=== PATIENT | male | born 1950 | race Caucasian/White ===

== ENCOUNTER 2019-02-17 16:24 | Inpatient (IN) ==
[2019-02-17] MEDS ORDERED: ASPIRIN 325 MG TABLET PO STA (16:51)
[2019-02-17] MEDS ORDERED: ONDANSETRON 4 MG/2 ML VIAL IV STA (16:51)
[2019-02-17 17:10] LABS: Basophils % 0.2 % (0.0-0.8); Eosinophils # 0.3 10*3/uL (0.0-0.87); Hemoglobin 12.5 GM/DL (14.0-18.0); Immature Granulocytes % 0.5 %; Immature Granulocytes Absolute 0.07 #; Lymphocytes # 2.3 10*3/uL (1.4-4.0); Lymphocytes % 18.2 % (21.2-54.2); Mean Corpuscular HGB Conc 32.1 GM/DL (32-36); Mean Platelet Volume 11.2 FL (9.6-12.0); Monocytes % 5.8 % (1.7-12.7); Neutrophils % 73.3 % (38.7-73.9); Platelet Count 220 T/CUMM (130-400); Red Blood Count 4.38 MC/CUMM (3.8-5.5); Red Cell Distribution Width 14.4 % (9.3-17.3); White Blood Count 12.9 T/CUMM (4-12)
[2019-02-17 17:20] LABS: INR 0.9; PT Patient Result 10.3 SECS; Partial Thromboplastin Time 33.7 SECS (0-40)
[2019-02-17 17:36] LABS: Alanine Aminotransferase 20 U/L (16-61); Albumin 3.1 G/DL (3.4-5.0); Alkaline Phosphatase 132 U/L (45-117); Aspartate Amino Transferase 13 U/L (0-37); Bilirubin,Total < 0.39 MG/DL (0.2-1.0); Blood Urea Nitrogen 15 MG/DL (7-18); Calcium 8.8 MG/DL (8.5-10.1); Glucose 151 MG/DL (74-106); Osmolality,Calculated 286.1 MOS/KG (273-304); Total Protein 7.3 G/DL (6.4-8.3)
[2019-02-17] MEDS ORDERED: ACETAMINOPHEN 325 MG TABLET PO PRN (18:40)
[2019-02-17] MEDS ORDERED: GLUCAGON 1 MG VIAL IM PRN (18:47)
[2019-02-17] MEDS ORDERED: DEXTROSE 50% 25 GM/50 ML VIAL IV PRN (18:47)
[2019-02-17] MEDS ORDERED: ONDANSETRON 4 MG/2 ML VIAL IV PRN (21:30)
[2019-02-17] MEDS ORDERED: LABETALOL 100 MG/20 ML VIAL IV PRN (22:38)
[2019-02-17] MEDS: CITALOPRAM 20 MG TABLET PO SCH (22:50)
[2019-02-17] MEDS: INSULIN LISPRO 100 UNIT/ML SUBCUT SCH (22:53)
[2019-02-17] MEDS: APIXABAN 5 MG TABLET PO SCH (22:53)
[2019-02-17] MEDS ORDERED: ASPIRIN CHEW 81 MG TABLET PO ONE (23:13)
[2019-02-18 04:53] LABS: Basophils % 0.3 % (0.0-0.8); Eosinophils # 0.1 10*3/uL (0.0-0.87); Eosinophils % 1.2 % (0.00-10.9); Hematocrit 36.6 VOL% (42.0-52.0); Hemoglobin 11.6 GM/DL (14.0-18.0); Immature Granulocytes % 0.3 %; Immature Granulocytes Absolute 0.04 #; Lymphocytes # 2.6 10*3/uL (1.4-4.0); Lymphocytes % 22.2 % (21.2-54.2); Mean Corpuscular HGB Conc 31.7 GM/DL (32-36); Mean Corpuscular Volume 89.7 FL (87-102); Mean Platelet Volume 11.5 FL (9.6-12.0); Monocytes % 6.7 % (1.7-12.7); Neutrophils % 69.3 % (38.7-73.9); Platelet Count 203 T/CUMM (130-400); Red Blood Count 4.08 MC/CUMM (3.8-5.5); Red Cell Distribution Width 14.2 % (9.3-17.3); White Blood Count 11.7 T/CUMM (4-12)
[2019-02-18 05:28] LABS: Calcium 9.2 MG/DL (8.5-10.1); Osmolality,Calculated 287.8 MOS/KG (273-304); Risk Ratio 4.17; Thyroid Stimulating Hormone 0.586 uIU/ml (0.358-3.74); VLDL CHOLESTEROL 17.4 MG/DL
[2019-02-18] MEDS: LISINOPRIL 20 MG TABLET PO SCH (08:47)
[2019-02-18] MEDS: ERGOCALCIFEROL 50,000 UNIT CAPSULE PO SCH (08:47)
[2019-02-18] MEDS: ATORVASTATIN 40 MG TABLET PO SCH (08:48)
[2019-02-18] MEDS: METOPROLOL TARTRATE 50 MG TABLET PO SCH ×2 (08:48→21:16)
[2019-02-18] MEDS: amLODIPine 10 MG TABLET PO SCH (08:48)
[2019-02-18] MEDS: ALLOPURINOL 300 MG TABLET PO SCH (08:52)
[2019-02-18] MEDS: APIXABAN 5 MG TABLET PO SCH ×2 (08:52→21:15)
[2019-02-18] MEDS: sitaGLIPtin 100 MG TABLET PO SCH (08:52)
[2019-02-18] MEDS: INSULIN LISPRO 100 UNIT/ML SUBCUT SCH ×4 (08:57→22:53)
[2019-02-18] MEDS ORDERED: CYANOCOBALAMIN 1000 MCG/1 ML VIAL SUBCUT SCH (09:00)
[2019-02-18] MEDS ORDERED: ASPIRIN EC 81 MG TABLET PO SCH (09:00)
[2019-02-18 11:59] LABS: Apearance,Urine CLEAR (Clear); Bilirubin,Urine Negative (Negative); Blood, Urine Negative (Negative); Glucose,Urine (UA) Negative (Negative); Hyaline Casts,Urine 3 /LPF (0-3); Ketones,Urine Negative (Negative); Mucus,Urine Moderate /LPF (Occasional); Nitrite,Urine Negative (Negative); Protein,Urine 30 MG/DL; RBC,Urine 5 /HPF (0-4); Squamous Epithelial Cell,Urine Occasional /HPF (0-10); Urine Color Yellow (Yellow); Urine Specific Gravity 1.026 (1.001-1.035)
[2019-02-18 12:03] LABS: Barbiturates Screen,Urine Negative (Negative); Benzodiazepines Screen,Urine Negative (Negative); Cannabinoid Screen,Urine Negative (Negative); Opiate Screen,Urine Negative (Negative); Phencyclidine Screen,Urine Negative (Negative)
[2019-02-18] MEDS: CITALOPRAM 20 MG TABLET PO SCH (21:15)
[2019-02-19 05:18] LABS: Basophils % 0.3 % (0.0-0.8); Eosinophils # 0.2 10*3/uL (0.0-0.87); Eosinophils % 1.9 % (0.00-10.9); Hematocrit 37.4 VOL% (42.0-52.0); Hemoglobin 11.9 GM/DL (14.0-18.0); Immature Granulocytes % 0.4 %; Immature Granulocytes Absolute 0.05 #; Lymphocytes # 2.5 10*3/uL (1.4-4.0); Lymphocytes % 20.9 % (21.2-54.2); Mean Corpuscular HGB Conc 31.8 GM/DL (32-36); Mean Corpuscular Volume 88.8 FL (87-102); Mean Platelet Volume 11.3 FL (9.6-12.0); Monocytes % 6.2 % (1.7-12.7); Neutrophils % 70.3 % (38.7-73.9); Platelet Count 206 T/CUMM (130-400); Red Blood Count 4.21 MC/CUMM (3.8-5.5); Red Cell Distribution Width 14.4 % (9.3-17.3); White Blood Count 11.8 T/CUMM (4-12)
[2019-02-19 05:44] LABS: Calcium 8.9 MG/DL (8.5-10.1); Osmolality,Calculated 284.3 MOS/KG (273-304)
[2019-02-19] MEDS: INSULIN LISPRO 100 UNIT/ML SUBCUT SCH ×4 (08:10→20:55)
[2019-02-19] MEDS: APIXABAN 5 MG TABLET PO SCH ×2 (08:59→20:59)
[2019-02-19] MEDS: amLODIPine 10 MG TABLET PO SCH (08:59)
[2019-02-19] MEDS: LISINOPRIL 20 MG TABLET PO SCH (08:59)
[2019-02-19] MEDS: METOPROLOL TARTRATE 50 MG TABLET PO SCH ×2 (08:59→20:56)
[2019-02-19] MEDS: ALLOPURINOL 300 MG TABLET PO SCH (08:59)
[2019-02-19] MEDS: sitaGLIPtin 100 MG TABLET PO SCH (08:59)
[2019-02-19] MEDS: CLOPIDOGREL 75 MG TABLET PO SCH (08:59)
[2019-02-19] MEDS: ATORVASTATIN 40 MG TABLET PO SCH (09:00)
[2019-02-19] MEDS: CITALOPRAM 20 MG TABLET PO SCH (21:00)
[2019-02-20 04:50] LABS: Basophils % 0.2 % (0.0-0.8); Eosinophils # 0.3 10*3/uL (0.0-0.87); Eosinophils % 2.1 % (0.00-10.9); Hematocrit 37.6 VOL% (42.0-52.0); Hemoglobin 11.9 GM/DL (14.0-18.0); Immature Granulocytes % 0.3 %; Immature Granulocytes Absolute 0.04 #; Lymphocytes # 2.4 10*3/uL (1.4-4.0); Lymphocytes % 20.2 % (21.2-54.2); Mean Corpuscular HGB Conc 31.6 GM/DL (32-36); Mean Corpuscular Volume 88.5 FL (87-102); Mean Platelet Volume 11.6 FL (9.6-12.0); Monocytes % 6.9 % (1.7-12.7); Neutrophils % 70.3 % (38.7-73.9); Platelet Count 208 T/CUMM (130-400); Red Blood Count 4.25 MC/CUMM (3.8-5.5); Red Cell Distribution Width 14.5 % (9.3-17.3)
[2019-02-20 05:18] LABS: Calcium 8.8 MG/DL (8.5-10.1); Osmolality,Calculated 281.4 MOS/KG (273-304)
[2019-02-20] MEDS: INSULIN LISPRO 100 UNIT/ML SUBCUT SCH ×4 (07:13→21:16)
[2019-02-20] MEDS: sitaGLIPtin 100 MG TABLET PO SCH (08:58)
[2019-02-20] MEDS: LISINOPRIL 20 MG TABLET PO SCH (08:58)
[2019-02-20] MEDS: APIXABAN 5 MG TABLET PO SCH ×2 (08:59→21:13)
[2019-02-20] MEDS: ATORVASTATIN 40 MG TABLET PO SCH (08:59)
[2019-02-20] MEDS: CLOPIDOGREL 75 MG TABLET PO SCH (08:59)
[2019-02-20] MEDS: METOPROLOL TARTRATE 50 MG TABLET PO SCH ×2 (08:59→21:13)
[2019-02-20] MEDS: ALLOPURINOL 300 MG TABLET PO SCH (08:59)
[2019-02-20] MEDS: amLODIPine 10 MG TABLET PO SCH (08:59)
[2019-02-20] MEDS: CITALOPRAM 20 MG TABLET PO SCH (21:12)
[2019-02-21 06:26] LABS: Basophils % 0.3 % (0.0-0.8); Eosinophils # 0.3 10*3/uL (0.0-0.87); Eosinophils % 2.2 % (0.00-10.9); Hematocrit 40.6 VOL% (42.0-52.0); Hemoglobin 12.9 GM/DL (14.0-18.0); Immature Granulocytes % 0.7 %; Lymphocytes # 2.4 10*3/uL (1.4-4.0); Lymphocytes % 16.9 % (21.2-54.2); Mean Corpuscular HGB Conc 31.8 GM/DL (32-36); Mean Corpuscular Volume 88.3 FL (87-102); Mean Platelet Volume 11.2 FL (9.6-12.0); Monocytes % 7.6 % (1.7-12.7); Neutrophils % 72.3 % (38.7-73.9); Platelet Count 221 T/CUMM (130-400); Red Cell Distribution Width 14.3 % (9.3-17.3); White Blood Count 14.1 T/CUMM (4-12)
[2019-02-21 06:51] LABS: Calcium 9.4 MG/DL (8.5-10.1); Osmolality,Calculated 278.7 MOS/KG (273-304)
[2019-02-21] MEDS: INSULIN LISPRO 100 UNIT/ML SUBCUT SCH ×4 (09:38→21:44)
[2019-02-21] MEDS: sitaGLIPtin 100 MG TABLET PO SCH (10:03)
[2019-02-21] MEDS: amLODIPine 10 MG TABLET PO SCH (10:03)
[2019-02-21] MEDS: ALLOPURINOL 300 MG TABLET PO SCH (10:03)
[2019-02-21] MEDS: ATORVASTATIN 40 MG TABLET PO SCH (10:03)
[2019-02-21] MEDS: LISINOPRIL 20 MG TABLET PO SCH (10:03)
[2019-02-21] MEDS: APIXABAN 5 MG TABLET PO SCH ×2 (10:03→21:43)
[2019-02-21] MEDS: METOPROLOL TARTRATE 50 MG TABLET PO SCH ×2 (10:04→21:44)
[2019-02-21] MEDS: CLOPIDOGREL 75 MG TABLET PO SCH (10:07)
[2019-02-21] MEDS ORDERED: ZINC OXIDE PASTE 113 GM TUBE TOP PRN (15:44)
[2019-02-21] MEDS: CITALOPRAM 20 MG TABLET PO SCH (21:43)
[2019-02-22 04:59] LABS: Basophils # 0.1 10*3/uL (0.0-0.2); Basophils % 0.3 % (0.0-0.8); Eosinophils # 0.2 10*3/uL (0.0-0.87); Eosinophils % 1.1 % (0.00-10.9); Hematocrit 40.9 VOL% (42.0-52.0); Hemoglobin 13.1 GM/DL (14.0-18.0); Immature Granulocytes % 0.8 %; Immature Granulocytes Absolute 0.14 #; Lymphocytes # 2.5 10*3/uL (1.4-4.0); Lymphocytes % 14.3 % (21.2-54.2); Mean Corpuscular Volume 87.4 FL (87-102); Mean Platelet Volume 11.3 FL (9.6-12.0); Monocytes % 7.2 % (1.7-12.7); Neutrophils % 76.3 % (38.7-73.9); Platelet Count 235 T/CUMM (130-400); Red Blood Count 4.68 MC/CUMM (3.8-5.5); Red Cell Distribution Width 14.4 % (9.3-17.3); White Blood Count 17.4 T/CUMM (4-12)
[2019-02-22 05:20] LABS: Calcium 9.3 MG/DL (8.5-10.1)
[2019-02-22] MEDS: INSULIN LISPRO 100 UNIT/ML SUBCUT SCH ×4 (09:31→21:26)
[2019-02-22] MEDS: amLODIPine 10 MG TABLET PO SCH (09:31)
[2019-02-22] MEDS: ALLOPURINOL 300 MG TABLET PO SCH (09:31)
[2019-02-22] MEDS: sitaGLIPtin 100 MG TABLET PO SCH (09:31)
[2019-02-22] MEDS: LISINOPRIL 20 MG TABLET PO SCH (09:32)
[2019-02-22] MEDS: METOPROLOL TARTRATE 50 MG TABLET PO SCH ×2 (09:32→20:47)
[2019-02-22] MEDS: APIXABAN 5 MG TABLET PO SCH ×2 (09:32→20:47)
[2019-02-22] MEDS: ATORVASTATIN 40 MG TABLET PO SCH (09:32)
[2019-02-22] MEDS: CLOPIDOGREL 75 MG TABLET PO SCH (09:32)
[2019-02-22] MEDS ORDERED: ZALEPLON 5 MG CAPSULE PO PRN (12:10)
[2019-02-22 15:16] LABS: Troponin I < 0.015 NG/ML (0.00-0.045)
[2019-02-22] MEDS: CITALOPRAM 20 MG TABLET PO SCH (20:46)
[2019-02-23] MEDS: ALLOPURINOL 300 MG TABLET PO SCH (08:25)
[2019-02-23] MEDS: CLOPIDOGREL 75 MG TABLET PO SCH (08:25)
[2019-02-23] MEDS: amLODIPine 10 MG TABLET PO SCH (08:25)
[2019-02-23] MEDS: ATORVASTATIN 40 MG TABLET PO SCH (08:25)
[2019-02-23] MEDS: LISINOPRIL 20 MG TABLET PO SCH (08:25)
[2019-02-23] MEDS: sitaGLIPtin 100 MG TABLET PO SCH (08:25)
[2019-02-23] MEDS: APIXABAN 5 MG TABLET PO SCH ×2 (08:25→20:24)
[2019-02-23] MEDS: METOPROLOL TARTRATE 50 MG TABLET PO SCH ×2 (08:25→20:24)
[2019-02-23] MEDS: INSULIN LISPRO 100 UNIT/ML SUBCUT SCH ×4 (10:31→20:24)
[2019-02-23] MEDS ORDERED: BISACODYL 10 MG SUPP RECTAL ONE (10:51)
[2019-02-23] MEDS ORDERED: FUROSEMIDE 20 MG/2 ML VIAL IV ONE (16:08)
[2019-02-23] MEDS ORDERED: MAGNESIUM CITRATE 300 ML BOTTLE PO ONE (18:02)
[2019-02-23] MEDS: CITALOPRAM 20 MG TABLET PO SCH (20:24)
[2019-02-24 04:58] LABS: Basophils % 0.3 % (0.0-0.8); Eosinophils # 0.4 10*3/uL (0.0-0.87); Eosinophils % 2.5 % (0.00-10.9); Hematocrit 38.5 VOL% (42.0-52.0); Hemoglobin 12.4 GM/DL (14.0-18.0); Immature Granulocytes % 0.6 %; Immature Granulocytes Absolute 0.09 #; Lymphocytes # 2.4 10*3/uL (1.4-4.0); Lymphocytes % 16.7 % (21.2-54.2); Mean Corpuscular HGB Conc 32.2 GM/DL (32-36); Mean Corpuscular Volume 87.9 FL (87-102); Mean Platelet Volume 11.7 FL (9.6-12.0); Monocytes % 7.6 % (1.7-12.7); Neutrophils % 72.3 % (38.7-73.9); Platelet Count 242 T/CUMM (130-400); Red Blood Count 4.38 MC/CUMM (3.8-5.5); Red Cell Distribution Width 14.3 % (9.3-17.3); White Blood Count 14.3 T/CUMM (4-12)
[2019-02-24 05:19] LABS: Calcium 9.3 MG/DL (8.5-10.1); Osmolality,Calculated 275.1 MOS/KG (273-304)
[2019-02-24 05:26] LABS: Calcium 9.5 MG/DL (8.5-10.1)
[2019-02-24 06:46] LABS: Apearance,Urine Slightly Hazy (Clear); Bacteria,Urine Occasional /HPF (Few); Bilirubin,Urine Negative (Negative); Blood, Urine Negative (Negative); Glucose,Urine (UA) Negative (Negative); Hyaline Casts,Urine 2 /LPF (0-3); Ketones,Urine Negative (Negative); Mucus,Urine Few /LPF (Occasional); Nitrite,Urine Negative (Negative); Protein,Urine Negative; RBC,Urine 11 /HPF (0-4); Squamous Epithelial Cell,Urine Occasional /HPF (0-10); Urine Color Yellow (Yellow); Urine Specific Gravity 1.023 (1.001-1.035); Urine Urobilinogen < 2.0 EU/DL (0.2-1.0); WBC,Urine 18 /HPF (0-6)
[2019-02-24] MEDS: FUROSEMIDE 20 MG/2 ML VIAL IV SCH (09:38)
[2019-02-24] MEDS: INSULIN LISPRO 100 UNIT/ML SUBCUT SCH ×4 (09:38→21:19)
[2019-02-24] MEDS: LISINOPRIL 20 MG TABLET PO SCH (09:39)
[2019-02-24] MEDS: amLODIPine 10 MG TABLET PO SCH (09:39)
[2019-02-24] MEDS: ATORVASTATIN 40 MG TABLET PO SCH (09:39)
[2019-02-24] MEDS: LEVOFLOXACIN 750 MG TABLET PO SCH (09:39)
[2019-02-24] MEDS: sitaGLIPtin 100 MG TABLET PO SCH (09:39)
[2019-02-24] MEDS: ALLOPURINOL 300 MG TABLET PO SCH (09:40)
[2019-02-24] MEDS: METOPROLOL TARTRATE 50 MG TABLET PO SCH ×2 (09:40→21:19)
[2019-02-24] MEDS: CITALOPRAM 20 MG TABLET PO SCH (21:18)
[2019-02-24] MEDS: APIXABAN 5 MG TABLET PO SCH (21:19)
[2019-02-25 05:23] LABS: Basophils % 0.3 % (0.0-0.8); Eosinophils # 0.3 10*3/uL (0.0-0.87); Eosinophils % 2.5 % (0.00-10.9); Hematocrit 38.6 VOL% (42.0-52.0); Hemoglobin 11.9 GM/DL (14.0-18.0); Immature Granulocytes % 0.9 %; Immature Granulocytes Absolute 0.11 #; Lymphocytes # 2.3 10*3/uL (1.4-4.0); Lymphocytes % 18.2 % (21.2-54.2); Mean Corpuscular HGB Conc 30.8 GM/DL (32-36); Mean Corpuscular Volume 89.1 FL (87-102); Mean Platelet Volume 11.3 FL (9.6-12.0); Neutrophils % 71.1 % (38.7-73.9); Platelet Count 257 T/CUMM (130-400); Red Blood Count 4.33 MC/CUMM (3.8-5.5); Red Cell Distribution Width 14.3 % (9.3-17.3); White Blood Count 12.8 T/CUMM (4-12)
[2019-02-25 05:42] LABS: Calcium 9.6 MG/DL (8.5-10.1); Osmolality,Calculated 279.8 MOS/KG (273-304)
[2019-02-25] MEDS: LEVOFLOXACIN 750 MG TABLET PO SCH (09:24)
[2019-02-25] MEDS: LISINOPRIL 20 MG TABLET PO SCH (09:24)
[2019-02-25] MEDS: ALLOPURINOL 300 MG TABLET PO SCH (09:24)
[2019-02-25] MEDS: sitaGLIPtin 100 MG TABLET PO SCH (09:24)
[2019-02-25] MEDS: ERGOCALCIFEROL 50,000 UNIT CAPSULE PO SCH (09:24)
[2019-02-25] MEDS: CLOPIDOGREL 75 MG TABLET PO SCH (09:24)
[2019-02-25] MEDS: amLODIPine 10 MG TABLET PO SCH (09:24)
[2019-02-25] MEDS: APIXABAN 5 MG TABLET PO SCH ×2 (09:24→20:58)
[2019-02-25] MEDS: ATORVASTATIN 40 MG TABLET PO SCH (09:24)
[2019-02-25] MEDS: METOPROLOL TARTRATE 50 MG TABLET PO SCH ×2 (09:25→20:58)
[2019-02-25] MEDS: FUROSEMIDE 20 MG/2 ML VIAL IV SCH (09:25)
[2019-02-25] MEDS: INSULIN LISPRO 100 UNIT/ML SUBCUT SCH ×4 (10:50→20:59)
[2019-02-25] MEDS ORDERED: FUROSEMIDE 20 MG/2 ML VIAL IV ONE (10:56)
[2019-02-25] MEDS: CITALOPRAM 20 MG TABLET PO SCH (20:58)
[2019-02-26] MEDS: sitaGLIPtin 100 MG TABLET PO SCH (10:16)
[2019-02-26] MEDS: amLODIPine 10 MG TABLET PO SCH (10:16)
[2019-02-26] MEDS: LISINOPRIL 20 MG TABLET PO SCH (10:16)
[2019-02-26] MEDS: ALLOPURINOL 300 MG TABLET PO SCH (10:16)
[2019-02-26] MEDS: ATORVASTATIN 40 MG TABLET PO SCH (10:17)
[2019-02-26] MEDS: INSULIN LISPRO 100 UNIT/ML SUBCUT SCH ×2 (10:17→13:54)
[2019-02-26] MEDS: CLOPIDOGREL 75 MG TABLET PO SCH (10:17)
[2019-02-26] MEDS: METOPROLOL TARTRATE 50 MG TABLET PO SCH (10:17)
[2019-02-26] MEDS: LEVOFLOXACIN 750 MG TABLET PO SCH (10:17)
[2019-02-26] MEDS: APIXABAN 5 MG TABLET PO SCH (10:17)
[2019-02-26] MEDS: FUROSEMIDE 20 MG/2 ML VIAL IV SCH (10:18)
[2019-02-26 12:11] VITALS: BP 120/64
== END 2019-02-26 13:13 | disposition swing bed (61) | DRG 64 ==
LOC: N.ED 16:24 → N.EDINP 16:24 → SUPCPDRO 18:40 → N.4E 19:38 → SUATTDRO 02-18 13:04
PROVIDERS: ADMIT Internal Medicine; ATTEND Internal Medicine

== ENCOUNTER 2020-03-02 13:31 | Observation (INO) ==
[2020-03-02] MEDS ORDERED: ASPIRIN 325 MG TABLET PO STA (13:57)
[2020-03-02] MEDS ORDERED: ENOXAPARIN 100 MG/ML SYRINGE SUBCUT STA (13:57)
[2020-03-02 14:17] LABS: Basophils % 0.4 % (0.0-0.8); Eosinophils # 0.3 10*3/uL (0.0-0.87); Eosinophils % 2.9 % (0.00-10.9); Hematocrit 39.5 VOL% (42.0-52.0); Hemoglobin 12.3 GM/DL (14.0-18.0); Immature Granulocytes % 0.5 %; Immature Granulocytes Absolute 0.05 #; Lymphocytes # 2.2 10*3/uL (1.4-4.0); Lymphocytes % 23.9 % (21.2-54.2); Mean Corpuscular HGB Conc 31.1 GM/DL (32-36); Mean Corpuscular Volume 84.6 FL (87-102); Mean Platelet Volume 11.2 FL (9.6-12.0); Monocytes % 6.8 % (1.7-12.7); Neutrophils % 65.5 % (38.7-73.9); Platelet Count 196 T/CUMM (130-400); Red Blood Count 4.67 MC/CUMM (3.8-5.5); Red Cell Distribution Width 16.2 % (9.3-17.3); White Blood Count 9.3 T/CUMM (4-12)
[2020-03-02 14:28] LABS: PT Patient Result 11.1 SECS (9.8-11.9); Partial Thromboplastin Time 37.2 SECS (23.9-33.8)
[2020-03-02 14:29] LABS: Alanine Aminotransferase 27 U/L (16-61); Albumin 2.8 G/DL (3.4-5.0); Alkaline Phosphatase 114 U/L (45-117); Aspartate Amino Transferase 18 U/L (0-37); Bilirubin,Total < 0.39 MG/DL (0.2-1.0); Blood Urea Nitrogen 17 MG/DL (7-18); Calcium 8.5 MG/DL (8.5-10.1); Estimated Glom Filtration Rate 121 ML/MIN; Glucose 111 MG/DL (74-106); Osmolality,Calculated 279.5 MOS/KG (273-304); Total Protein 6.6 G/DL (6.4-8.3)
[2020-03-02] MEDS ORDERED: LACTULOSE 20 GM/30 ML UDCUP PO PRN (16:17)
[2020-03-02] MEDS ORDERED: DOCUSATE SODIUM 100 MG CAPSULE PO PRN (16:17)
[2020-03-02] MEDS ORDERED: hydrALAZINE 20 MG/1 ML VIAL IV PRN (16:17)
[2020-03-02] MEDS ORDERED: MORPHINE 4 MG/1 ML VIAL IV PRN (16:17)
[2020-03-02] MEDS ORDERED: ACETAMINOPHEN 325 MG TABLET PO PRN (16:17)
[2020-03-02] MEDS ORDERED: GLUCAGON 1 MG VIAL IM PRN (16:17)
[2020-03-02] MEDS ORDERED: DEXTROSE 50% 25 GM/50 ML VIAL IV PRN (16:17)
[2020-03-02] MEDS ORDERED: ONDANSETRON 4 MG/2 ML VIAL IV PRN (16:17)
[2020-03-02] MEDS ORDERED: MAGNESIUM SULF RIDER 2 GM in PREMIX 1 EACH IV PRN (16:23)
[2020-03-02] MEDS ORDERED: ALUM/MAG/SIMETH/LIDO VISC 1:1 30 ML BOTTLE PO PRN (16:23)
[2020-03-02] MEDS ORDERED: POTASSIUM CHLORIDE 20 MEQ TABLET PO PRN ×2 (16:23)
[2020-03-02] MEDS ORDERED: MAGNESIUM SULF RIDER 4 GM in PREMIX 1 EACH IV PRN (16:23)
[2020-03-02] MEDS ORDERED: ENOXAPARIN 40 MG/0.4 ML SYRINGE SUBCUT SCH (16:30)
[2020-03-02] MEDS: INSULIN LISPRO 100 UNIT/ML SUBCUT SCH ×2 (17:08→22:17)
[2020-03-02] MEDS: SODIUM CHLORIDE 0.45% 1,000 ML IV SCH (18:36)
[2020-03-02] MEDS: ALBUTEROL/IPRATROPIUM 3 ML NEB RESP TX SCH (19:38)
[2020-03-02] MEDS ORDERED: ATORVASTATIN 20 MG TABLET PO SCH (21:00)
[2020-03-02] MEDS ORDERED: ATORVASTATIN 40 MG TABLET PO SCH (21:00)
[2020-03-02] MEDS: METOPROLOL TARTRATE 50 MG TABLET PO SCH (22:19)
[2020-03-03] MEDS: ALBUTEROL/IPRATROPIUM 3 ML NEB RESP TX SCH ×2 (01:02→07:12)
[2020-03-03] MEDS: SODIUM CHLORIDE 0.45% 1,000 ML IV SCH (02:27)
[2020-03-03 06:26] LABS: Basophils % 0.3 % (0.0-0.8); Eosinophils # 0.2 10*3/uL (0.0-0.87); Eosinophils % 2.2 % (0.00-10.9); Hematocrit 37.5 VOL% (42.0-52.0); Hemoglobin 11.8 GM/DL (14.0-18.0); Immature Granulocytes % 0.3 %; Immature Granulocytes Absolute 0.03 #; Lymphocytes # 2.4 10*3/uL (1.4-4.0); Lymphocytes % 26.8 % (21.2-54.2); Mean Corpuscular HGB Conc 31.5 GM/DL (32-36); Mean Corpuscular Volume 83.3 FL (87-102); Mean Platelet Volume 11.9 FL (9.6-12.0); Monocytes % 8.1 % (1.7-12.7); Neutrophils % 62.3 % (38.7-73.9); Platelet Count 177 T/CUMM (130-400); Red Cell Distribution Width 16.2 % (9.3-17.3); White Blood Count 8.8 T/CUMM (4-12)
[2020-03-03 06:32] LABS: PT Patient Result 10.8 SECS (9.8-11.9); Partial Thromboplastin Time 36.2 SECS (23.9-33.8)
[2020-03-03 06:58] LABS: Albumin 2.7 G/DL (3.4-5.0); Bilirubin,Total 1.2 MG/DL (0.2-1.0); Calcium 8.8 MG/DL (8.5-10.1); Osmolality,Calculated 279.5 MOS/KG (273-304); Risk Ratio 4.24; Thyroid Stimulating Hormone 0.608 uIU/ml (0.358-3.74); Total Protein 6.4 G/DL (6.4-8.3)
[2020-03-03] MEDS: INSULIN LISPRO 100 UNIT/ML SUBCUT SCH (08:51)
[2020-03-03 08:58] VITALS: BP 155/77
[2020-03-03] MEDS ORDERED: PANTOPRAZOLE 40 MG TABLET PO SCH (09:00)
[2020-03-03] MEDS ORDERED: lisinopriL 20 MG TABLET PO SCH (09:00)
[2020-03-03] MEDS ORDERED: amLODIPine 10 MG TABLET PO SCH (09:00)
[2020-03-03] MEDS: METOPROLOL TARTRATE 50 MG TABLET PO SCH (09:46)
[2020-03-03] MEDS ORDERED: ENOXAPARIN 150 MG/ML SYRINGE SUBCUT SCH (21:00)
== END 2020-03-03 12:49 ==
LOC: EDUNIT# → EDBD → N.ED 13:31 → N.EDINP 13:31 → N.TELES 17:23
PROVIDERS: ADMIT Internal Medicine; ATTEND Internal Medicine